=== PATIENT | male | born 1950 | race Caucasian/White ===

== ENCOUNTER 2016-10-11 09:26 | Emergency (ER) | payer MEDICARE, OTHER ==
--- NOTE | ~2016-10-11 | CT2 ---
[facility] A Service of [facility] & [facility] RADIOLOGY TEXT RESULTS PATIENT: RE AWAN LOCATION: SED : 48 UNIT #: [id number] AGE: [address]: Yeyo Noel MD SEX: M ORDER DR: [id number] [address] [address] [id number] MR#: [id number] Acc #: [id number] NAME: RE AWAN : 1950 SEX: M STUDY DATE/TIME: 10/11/2016 11:32 UNIT: SED ROOM: STUDY DESCRIPTION: CT Abd and Pelv W Cont Attending Physician: Yeyo Noel M.D. Ordering Physician: Yeyo Noel M.D. Primary Care Physician: No Primary Care Physician MEDICAL IMAGING REPORT This report is preliminary unless electronic signature is present. EXAM CT abdomen and pelvis with contrast, 10/11/2016, 1132 hours. CLINICAL HISTORY 66-year-old man with complaint of left-sided abdominal pain, nausea, vomiting and diarrhea. Symptoms began last week. COMPARISON None. TECHNIQUE Dynamic helical CT images were obtained from the lung bases through the pubic symphysis with oral and intravenous contrast. Sagittal and coronal reconstructions were performed. Contrast was Isovue 370, 100 mL. Total exam DLP 1470 mGy-cm. This CT exam was performed with one or more of the following radiation dose reduction techniques: automatic exposure control, adjustment of mA and/or kV according to patient size, and iterative reconstruction. FINDINGS Images through the lung bases demonstrate trace dependent right pleural effusion and mild bibasilar atelectasis. The distal esophagus is normal. Images through the abdomen demonstrate diffuse low attenuation of the liver relative to the spleen suggesting fatty infiltration. There is no focal liver lesion. The spleen, pancreas and bile ducts are normal. There is respiratory motion artifact on the images through the upper abdomen. The gallbladder suggests wall thickening measuring up to 6 mm. No stones are seen. Findings could be related to acalculous cholecystitis. The adrenal glands are normal. The kidneys enhance normally. There is no mass or stone seen. The abdominal aorta is normal in caliber with atherosclerotic changes. STS. [facility] A Service of [facility] & [facility] RADIOLOGY TEXT RESULTS PATIENT: RE AWAN LOCATION: SED : 48 UNIT #: [id number] AGE: [address]: Yeyo Noel MD SEX: M ORDER DR: The stomach is mostly contracted and only partially opacified, but does appear normal. Small bowel is fairly well opacified throughout. No small bowel distension or wall thickening is seen. The terminal ileum is normal. I cannot discriminate the appendix. There is trace stranding around the cecum, lateral and inferior to the cecum, best seen on image 85. Again, there is motion through this area, which makes assessment difficult. The colon is nondistended. There are colonic diverticula of the sigmoid colon, but no bowel wall thickening or inflammation. CT pelvis demonstrates calcifications in the prostate, which is not enlarged. The bladder is normal. Bone window images demonstrate multilevel degenerative disc disease, multilevel spurring through the lumbar spine with multilevel facet arthropathy. There is no fracture. IMPRESSION 1. The gallbladder is moderately distended and is thick-walled with the wall measuring up to 6 mm. There is no definite stone. There is suggestion of minimal stranding of the adjacent fat. Findings could represent acalculous cholecystitis. This, however, is contralateral to the patient reports a left-sided abdominal pain. 2. No renal or ureteral calculi. 3. I cannot clearly identify the appendix. The terminal ileum and cecum appear normal. There is trace stranding in the fat lateral to the cecum, which could indicate inflammation. There is no wall thickening seen. 4. Diverticulosis of the sigmoid colon without wall thickening. 5. Exam is generally degraded by motion artifact. STAT * RESULT Dictated by... Coni Sullivan M.D. THIS IS AN ELECTRONICALLY VERIFIED REPORT Coni Sullivan M.D. at 10/11/2016 2:25 PM GLADYS/munira TD: 10/11/2016 12:17 JOB #: [id number] MEDICAL IMAGING REPORT Page 1 of 1
[~2016-10-11 09:26] MED LIST: ALBUTEROL17 GM INH; AMOXICILLIN500 M1 PO; BENADRYL; CIPRO PO; FLOXIN OTIC5 M1 AD; HYCODAN60 ML 5MG/ PO; NO MEDICATIONS; OTC MED; PROVENTIL17 GM IH; ROBITUSSIN-DM120 ML PO; VIBRAMYCIN100 M1 PO
[2016-10-11] MEDS ORDERED: GLUCOTROL (09:31)
[2016-10-11] MEDS ORDERED: COZAAR (09:32)
[2016-10-11] MEDS ORDERED: ZANTAC (09:32)
[2016-10-11] MEDS ORDERED: BUSPIRONE HCL10 M2 (09:32)
[2016-10-11] MEDS ORDERED: PROTONIX (09:32)
[2016-10-11] MEDS ORDERED: CLOPIDOGREL75 MG (09:32)
[2016-10-11] MEDS ORDERED: LIPITOR (09:32)
[2016-10-11] MEDS ORDERED: LEXAPRO (09:32)
[2016-10-11] MEDS ORDERED: B-COMPLEX PLUS1 EACH (09:32)
[2016-10-11] MEDS ORDERED: REMERON (09:32)
[2016-10-11] MEDS ORDERED: METFORMIN (09:32)
[2016-10-11 09:56] LABS: BASOPHIL# 0.1 X10e3 (0-0.3); BASOPHIL% 0.8 % (0-2.5); EOSINOPHIL# 0.3 X10e3 (0-0.7); EOSINOPHIL% 2.6 % (0.0-7.0); HEMOGLOBIN 12.8 gm/dL (13.0-16.0); LYMPHOCYTE# 2.9 X10e3 (1.0-3.5); LYMPHOCYTE% 26.5 % (17.0-45.0); MEAN CELL VOLUME 93.7 FL (83-96); MEAN CORPUSCULAR HEMOGLOBIN 32.5 PG (28-34); MEAN CORPUSCULAR HGB CONC 34.6 g/dL (30-36); MEAN PLATELET VOLUME 7.2 FL (6.5-11.5); MONOCYTE# 0.7 X10e3 (0-1.0); MONOCYTE% 6.5 % (3.0-12.0); NEUTROPHIL% 63.6 % (40-75); PLATELET COUNT 316 X10e3 (140-420); RED BLOOD COUNT 3.94 X10e (3.90-5.60); RED CELL DISTRIBUTION WIDTH 12.8 % (11.0-15.5)
[2016-10-11 10:03] LABS: DIFF IND NO
[2016-10-11 10:13] LABS: ALBUMIN SERUM 3.4 g/dL (3.5-5.0); BILIRUBIN, DIRECT 0.3 mg/dL (0.0-0.2); BILIRUBIN,INDIRECT 0.4 mg/dL (0.0-0.9); BILIRUBIN,TOTAL 0.7 mg/dL (0.2-2.0); BUN/CREATININE RATIO 22.72; CREATININE SERUM 1.1 mg/dL (0.6-1.4); GLOM FILT RATE Estimated 68.6 mL/min (>60); POTASSIUM 3.8 mmol/L (3.5-5.1); PROTEIN TOTAL SERUM 8.5 g/dL (6.0-8.3)
[2016-10-11 12:12] LABS: URINE SOURCE CLEAN CATCH
[2016-10-11 12:15] LABS: URINE APPEARANCE CLEAR; URINE BILIRUBIN NEG (NEG); URINE BLOOD NEG (NEG); URINE COLOR YELLOW; URINE GLUCOSE NEG (NORM); URINE KETONE NEG (NEG); URINE LEUKOCYTE ESTERASE NEG (NEG); URINE NITRATE NEG (NEG); URINE PH 5.5 (5-8); URINE PROTEIN NEG (NEG); URINE SPECIFIC GRAVITY <=1.005 (1.003-1.035); URINE UROBILINOGEN 0.2 MG/DL (NORM)
[2016-10-11 12:19] LABS: MICRO INDICATED? NO
== END 2016-10-11 15:53 ==
LOC: SED 09:26
PROVIDERS: Emergency Medicine
DX: K81.0 Acute cholecystitis (principal); K85.90 Acute pancreatitis without necrosis or infection, unspecified; I10 Essential (primary) hypertension; E78.5 Hyperlipidemia, unspecified; E66.9 Obesity, unspecified; Z79.899 Other long term (current) drug therapy
CPT/HCPCS: 36415; 74177; 80048; 80076; 81003; 82150; 83690; 85025; 96374; 96375; 99285; J2270; J2405; Q9967